=== PATIENT | female | born 1990 | race African-American/Black ===

== ENCOUNTER → 2016-12-21 | Emergency (ER) | payer SELFPAY ==
[~2016-12-21] VITALS: Ht 172.7 cm; Wt 99.2 kg
[~2016-12-21] MED LIST: AMOXICILLIN500 MG PO; PRENATAL TABLE1 EAC3 PO
[2016-12-21 09:16] LABS: HEMATOCRIT 35.5 % (36.0-46.0); MCH 29.7 PG (29.0-34.0); MCHC 34.4 G/DL (30.0-36.0); MCV 86.4 FL (83-99); MEAN PLAT.VOLUME 8.9 uM^3 (9.5-12.4); PLATELET COUNT 179 K/uL (156-360); RBC DIS.WIDTH-CV 12.9 % (11.8-14.6); RBC DIS.WIDTH-SD 40.5 % (39-53); RED BLOOD COUNT 4.11 M/uL (3.80-5.20); WHITE BLOOD COUNT 6.4 K/uL (4.1-10.2)
[2016-12-21 09:48] LABS: ADD MIUA? YES; BILIRUBIN NEGATIVE; BLOOD SMALL; COLOR YELLOW ((YELLOW)); GLUCOSE (STRIP) NEGATIVE; KETONES 80; LEUKOCYTES NEGATIVE; NITRITE NEGATIVE; PROTEIN (STRIP) NEGATIVE; SPECIFIC GRAVITY 1.013 (1.000-1.030); UROBILINOGEN 0.2 MG/DL (0.2-1.0)
[2016-12-21 09:54] LABS: QUANTITATIVE HCG 32298.3 MIU/ML
[2016-12-21 10:01] LABS: BACTERIA RARE /HPF; EPITHELIAL CELLS RARE /HPF; MUCUS TRACE /LPF; RED BLOOD CELLS 0-5 /HPF (0-5); UCUL ADDED? NO; WHITE BLOOD CELLS 0-5 /HPF (0-5)
[2016-12-21 10:58] LABS: CHLORIDE 103 mEq/L (99-109); POTASSIUM 3.5 mEq/L (3.7-5.4); SODIUM 135 mEq/L (136-147)
[2016-12-21 11:00] LABS: GLUCOSE 98 mg/dL (70-99)
[2016-12-21 11:01] LABS: ANION GAP 8 MEQ/L (2-14)
[2016-12-21 11:02] LABS: TOTAL BILIRUBIN 0.4 mg/dL (0.0-1.0)
[2016-12-21 11:03] LABS: ALKALINE PHOSPHATASE 43 IU/L (3-129)
[2016-12-21 11:05] LABS: UREA NITROGEN (BUN) 4 mg/dL (9-23)
[2016-12-21 11:13] LABS: GFR ESTIMATE (CALCULATED) > 59 mL/min/
[2016-12-21 12:03] VITALS: BP 131/74
== END | disposition home or self-care (01) ==
LOC: EDBD 08:47 → EME 08:47
PROVIDERS: Emergency Medicine
DX: K04.7 Periapical abscess without sinus (principal); K02.9 Dental caries, unspecified; S02.5XXA Fracture of tooth (traumatic), initial encounter for closed fracture; Z33.1 Pregnant state, incidental
CPT/HCPCS: 80053; 81003; 84702; 85027; 86900; 86901; 87651 90; 99281; 99284

== ENCOUNTER 2017-02-27 22:44 | Inpatient (IN) | payer OTHER ==
[~2017-02-27] VITALS: Ht 175.3 cm; Wt 89.0 kg
[2017-02-27 23:09] VITALS: BP 122/64
[2017-02-27 23:26] VITALS: BP 119/63
[2017-02-27 23:56] VITALS: BP 121/59
[2017-02-28 00:11] VITALS: BP 120/62
[2017-02-28 00:46] LABS: BASOPHIL (%) 0.1 % (0-1); EOSINOPHIL (%) 0 % (0-5); HEMATOCRIT 35.9 % (36.0-46.0); HEMOGLOBIN 12.3 G/DL (11.9-15.5); IMMATURE GRANULOCYTE (%) 0.3 % (0.0-0.7); LYMPHOCYTE (%) 4.9 % (15-42); LYMPHOCYTE COUNT 0.7 K/uL (1.0-2.8); MCH 29.3 PG (29.0-34.0); MCHC 34.3 G/DL (30.0-36.0); MCV 85.5 FL (83-99); MONOCYTE (%) 5.2 % (3-12); MONOCYTE COUNT 0.7 K/uL (0-0.8); NEUTROPHIL (%) 89.5 % (45-76); PLATELET COUNT 193 K/uL (156-360); RBC DIS.WIDTH-SD 39.7 % (39-53); WHITE BLOOD COUNT 13.4 K/uL (4.1-10.2)
[2017-02-28 01:10] VITALS: BP 126/70
[2017-02-28 02:34] VITALS: BP 103/51
[2017-02-28 08:04] LABS: BASOPHIL (%) 0.2 % (0-1); EOSINOPHIL (%) 0.1 % (0-5); HEMATOCRIT 34.5 % (36.0-46.0); HEMOGLOBIN 11.7 G/DL (11.9-15.5); IMMATURE GRANULOCYTE (%) 0.2 % (0.0-0.7); LYMPHOCYTE (%) 13.5 % (15-42); LYMPHOCYTE COUNT 1.7 K/uL (1.0-2.8); MCH 28.7 PG (29.0-34.0); MCHC 33.9 G/DL (30.0-36.0); MCV 84.8 FL (83-99); MONOCYTE (%) 9.3 % (3-12); MONOCYTE COUNT 1.1 K/uL (0-0.8); NEUTROPHIL (%) 76.7 % (45-76); NEUTROPHIL COUNT 9.4 K/uL (1.8-6.4); PLATELET COUNT 198 K/uL (156-360); RBC DIS.WIDTH-CV 12.9 % (11.8-14.6); RBC DIS.WIDTH-SD 39.6 % (39-53); RED BLOOD COUNT 4.07 M/uL (3.80-5.20); WHITE BLOOD COUNT 12.2 K/uL (4.1-10.2)
[2017-02-28 13:22] LABS: AMPHETAMINE NEGATIVE (500 ng/mL); BARBITURATES NEGATIVE (200 ng/mL); BENZODIAZEPINES NEGATIVE (150 ng/mL); BUPRENORPHINE NEGATIVE (10 ng/mL); COCAINE NEGATIVE (150 ng/mL); METHADONE NEGATIVE (200 ng/mL); METHAMPHETAMINE NEGATIVE (500 ng/mL); OPIATES (MORPHINE) NEGATIVE (100 ng/mL); OXYCODONE NEGATIVE (100 ng/mL); PHENCYCLIDINE NEGATIVE (25 ng/mL); PROPOXYPHENE NEGATIVE (300 ng/mL); THC CANNABINOIDS NEGATIVE (50 ng/mL); TRICYCLIC ANTIDEPRESSANTS NEGATIVE (300 ng/mL)
[2017-02-28 22:53] VITALS: BP 124/65
[2017-03-01 07:22] VITALS: BP 109/63
[2017-03-01 10:30] LABS: TREPONEMA ANTIBODY NEGATIVE (NEGATIVE)
[2017-03-01 10:55] LABS: HIV-1/2 AB/AG COMBO Nonreactive
[2017-03-01 15:31] VITALS: BP 119/58
[2017-03-01] MEDS ORDERED: IBUPROFEN800 MG PO (15:37)
== END 2017-03-01 19:35 | disposition home or self-care (01) | DRG 775 ==
LOC: LDRP-OP 22:44 → 2WEST 22:45
PROVIDERS: Advanced Practice Midwife
DX: O70.0 First degree perineal laceration during delivery (principal); O48.0 Post-term pregnancy; O62.3 Precipitate labor; Z3A.41 41 weeks gestation of pregnancy; Z37.0 Single live birth; O77.0 Labor and delivery complicated by meconium in amniotic fluid
CPT/HCPCS: 85025; 85025 91; 86780; 87389; J2590